=== PATIENT | female | born 1985 | race Caucasian/White ===

== ENCOUNTER → 2017-05-23 | Outpatient (CLI) | payer OTHER ==
[~2017-05-23] MED LIST: ALLEGRA ALLERG180 M1 PO; ALLEGRA ALLERG180 MG; AMOX500 PO; CEPH500 PO; DOCU100; DOCU100 PO; FERROUS SULFATE PO; FLUC150A PO; HYDACE5 PO; IBUP800 PO; IRON150C; Metformin HCl500 MG PO; NITR100CA PO; OXYACE5T PO; PENVK500 PO; PRED10 PO; PROM25 PO; VENL150ER PO; Verotin-Gr Cap1 EACH PO; YAZ; Zofran Odt4 MG SL
== END | disposition home or self-care (01) ==
LOC: LAB 08:47
DX: N20.0 Calculus of kidney (principal)
CPT/HCPCS: 82360

== ENCOUNTER 2017-05-26 18:47 | Emergency (ER) | payer OTHER ==
[~2017-05-26] VITALS: Ht 162.6 cm; Wt 93.0 kg
[~2017-05-26 18:47] MED LIST changes: -ALLEGRA ALLERG180 M1 PO; -ALLEGRA ALLERG180 MG; -DOCU100; -DOCU100 PO; -FERROUS SULFATE PO; -IBUP800 PO; -IRON150C; -Metformin HCl500 MG PO; -Zofran Odt4 MG SL
[2017-05-26] MEDS ORDERED: ALLEGRA ALLERG180 MG (19:17)
[2017-05-26 21:53] LABS: Source, Urine Clean Catch
[2017-05-26 21:56] LABS: Appearance, Urine Clear (Clear); Bilirubin, Urine Neg (Neg); Blood, Urine 1+ (Neg); Color, Urine Yellow (P-Yellow); Glucose Qualitative, Urine Neg (Neg); Ketones, Urine Neg (Neg); Leukocyte Esterase, Urine Neg (Neg); Nitrite, Urine Neg (Neg); Protein, Urine 1+ (Neg); Urobilinogen, Urine NORM (Normal)
[2017-05-26 22:04] LABS: Bacteria Few /hpf; Squamous Epithelial Cells Mod /hpf (Few); White Blood Cells, Urine 0-2 /hpf (0-5)
[2017-05-26 22:15] LABS: Calcium, Ionized (POC) 1.12 mmol/L (1.10-1.46); Chloride (POC) 103 mmol/L (98-108); Creatinine (POC) 0.6 mg/dL (0.6-1.0); Glucose (ISTAT POC) 75 mg/dL (70-99); Hemoglobin (POC) 10.5 g/dL (12.0-16.0); Potassium (POC) 3.5 mmol/L (3.5-5.5); Sodium (POC) 138 mmol/L (135-148); Total CO2 (POC) 25 mmol/L (21-32)
[2017-05-26] MEDS ORDERED: Zofran Odt4 MG SL (22:45)
[2017-11-30] MEDS ORDERED: Verotin-Gr Cap1 EACH PO (09:39)
[2017-11-30] MEDS ORDERED: ALLEGRA ALLERG180 M1 PO (09:39)
[2017-11-30] MEDS ORDERED: FERROUS SULFATE PO (09:40)
[2017-11-30] MEDS ORDERED: DOCU100 PO (09:48)
[2017-11-30] MEDS ORDERED: Metformin HCl500 MG PO (09:48)
== END 2017-05-26 22:50 | disposition home or self-care (01) ==
LOC: ER 18:47
PROVIDERS: Emergency Medicine
DX: O99.512 Diseases of the respiratory system complicating pregnancy, second trimester (principal); J10.1 Influenza due to other identified influenza virus with other respiratory manifestations; O99.282 Endocrine, nutritional and metabolic diseases complicating pregnancy, second trimester; E86.0 Dehydration; Z79.899 Other long term (current) drug therapy; Z87.442 Personal history of urinary calculi; Z3A.23 23 weeks gestation of pregnancy
CPT/HCPCS: 36415; 80047; 81001; 85014; 96360; 99283; J7030

== ENCOUNTER → 2017-08-28 | Outpatient (CLI) | payer OTHER ==
[~2017-08-28] MED LIST changes: +ALLEGRA ALLERG180 MG; +Zofran Odt4 MG SL
== END ==
LOC: LAB SHORT 10:01 → LAB 10:01
DX: Z34.80 Encounter for supervision of other normal pregnancy, unspecified trimester (principal)
CPT/HCPCS: 87081; 87653

== ENCOUNTER → 2017-09-11 | Outpatient (CLI) | payer OTHER ==
[~2017-09-11] MED LIST changes: +DOCU100; +IBUP800 PO; +IRON150C
[2017-09-11 14:39] LABS: Candida species (DNA Probe) Negative (NEGATIVE); G. vaginalis (DNA Probe) Negative (NEGATIVE); T. vaginalis (DNA Probe) Negative (NEGATIVE)
== END | disposition home or self-care (01) ==
LOC: LAB SHORT 09:46 → LAB 09:46
PROVIDERS: Advanced Practice Midwife
DX: N76.0 Acute vaginitis (principal)
CPT/HCPCS: 87480; 87510; 87660

== ENCOUNTER 2017-09-16 18:46 | Inpatient (IN) | payer OTHER ==
[~2017-09-16] VITALS: Ht 165.1 cm; Wt 99.7 kg
[~2017-09-16 18:46] MED LIST changes: -DOCU100; -IBUP800 PO; -IRON150C
[2017-09-16] MEDS ORDERED: IRON150C (19:20)
[2017-09-16] MEDS ORDERED: DOCU100 (19:20)
[2017-09-17 05:50] LABS: Hematocrit 32.2 % (33.0-51.0); Hemoglobin 10.8 g/dL (11.5-16.0); Mean Corpuscular HGB 29.1 pg (26.0-34.0); Mean Corpuscular HGB Conc 33.5 g/dL (31.5-36.5); Mean Corpuscular Volume 87 fL (80-100); Platelet Count 191 K/mm3 (150-400); RDW Coefficient Variation 13.2 % (11.7-14.2); RDW Standard Deviation 41.8 fL (35.1-46.3); Red Blood Cell Count 3.71 M/mm3 (3.80-5.20); White Blood Cell Count 9.83 K/mm3 (4.00-11.30)
[2017-09-17] MEDS ORDERED: IBUP800 PO (15:13)
== END 2017-09-17 19:00 | disposition home or self-care (01) | DRG 775 ==
LOC: BC 18:46
PROVIDERS: Advanced Practice Midwife
PROC: 10E0XZZ Delivery of Products of Conception, External Approach (ICD-10-PCS; principal; 2017-09-16)
DX: Z39.0 Encounter for care and examination of mother immediately after delivery (principal)
CPT/HCPCS: 36415; 59414; 85027; 90471; 90707; J2590

== ENCOUNTER 2017-12-04 11:04 | Day surgery (SDC) | payer OTHER ==
[~2017-12-04] VITALS: Ht 162.6 cm; Wt 89.8 kg
[~2017-12-04 11:04] MED LIST changes: +ALLEGRA ALLERG180 M1 PO; +DOCU100; +DOCU100 PO; +FERROUS SULFATE PO; +IBUP800 PO; +IRON150C; +Metformin HCl500 MG PO
== END 2017-12-04 22:39 | disposition home or self-care (01) ==
LOC: ORSCMMR 11:04 → ORD 12:25 → ORSCMMR 12:25
PROVIDERS: Obstetrics & Gynecology
PROC: 0UT74ZZ Resection of Bilateral Fallopian Tubes, Percutaneous Endoscopic Approach (ICD-10-PCS; principal; 2017-12-04 12:00)
DX: Z30.2 Encounter for sterilization (principal); E66.9 Obesity, unspecified; Z68.34 Body mass index [BMI] 34.0-34.9, adult; Z79.899 Other long term (current) drug therapy
CPT/HCPCS: 88302; J0171; J1100; J1885; J2250; J2405; J2710; J3010; J7120